=== PATIENT | male | born 1985 | race Caucasian/White ===

== ENCOUNTER 2023-12-26 08:50 | Emergency (ER) | payer OTHER ==
[~2023-12-26] VITALS: Ht 195.6 cm; Wt 111.6 kg
[2023-12-26 11:26] VITALS: BP 131/83; TEMP 97.3; O2SAT 98
== END 2023-12-26 11:30 | disposition home or self-care (01) ==
LOC: M ED 08:50
DX: R31.0 Gross hematuria (principal); N40.0 Benign prostatic hyperplasia without lower urinary tract symptoms; K40.90 Unilateral inguinal hernia, without obstruction or gangrene, not specified as recurrent

== ENCOUNTER → 2024-01-31 | Outpatient (CLI) | payer OTHER ==
[~2024-01-31] MED LIST: ISOVUE-370 76% 100ML VIAL As Ordered ONE
== END ==
LOC: M RAD 15:43
PROVIDERS: ATTEND Urology
DX: N20.0 Calculus of kidney (principal); R31.0 Gross hematuria
CPT/HCPCS: 74178; Q9967

== ENCOUNTER → 2024-09-12 | Outpatient (CLI) | payer OTHER ==
[~2024-09-12] MED LIST changes: -ISOVUE-370 76% 100ML VIAL As Ordered ONE; +PROHANCE 279.3MG/ML 15ML VIAL ONE; +PROHANCE 279.3MG/ML 5ML VIAL ONE
== END ==
LOC: M PLAIMG 14:25
PROVIDERS: ATTEND Orthopaedic Surgery Hand Surgery
DX: M25.832 Other specified joint disorders, left wrist (principal)
CPT/HCPCS: 73223; A9576

== ENCOUNTER 2024-10-22 07:57 | Day surgery (SDC) | payer OTHER ==
[~2024-10-22] VITALS: Ht 195.6 cm; Wt 104.5 kg
[~2024-10-22 07:57] MED LIST changes: +CELE1CAP4 PO; +HYDR-3716 PO; +KETOROLAC 60MG 2ML VIAL As Ordered ONE; +LIDOCAINE 2% 100MG/5ML SDV (FOR ANES.) As Ordered ONE; +METH-1164 PO; +ONDANSETRON 4MG 2ML VIAL As Ordered ONE; -PROHANCE 279.3MG/ML 15ML VIAL ONE; -PROHANCE 279.3MG/ML 5ML VIAL ONE; +propofoL 200 MG/20 ML VIAL As Ordered ONE
[2024-10-22] MEDS ORDERED: MIDAZOLAM INJ 2MG/2ML VIAL As Ordered ONE (08:00)
[2024-10-22] MEDS ORDERED: fentaNYL 100 MCG/2 ML INJECTION As Ordered ONE (08:00)
[2024-10-22] MEDS ORDERED: dexmedeTOMIDine (4MCG/ML)200MCG/50ML BTL (PRECEDEX) As Ordered ONE (08:28)
[2024-10-22] MEDS ORDERED: NS 1,000 ML IV SCH ×2 (08:40→10:35)
[2024-10-22] MEDS: ceFAZolin 2 GM/D5W 50 ML IV BAG As Ordered ONE (09:27)
[2024-10-22] MEDS ORDERED: ceFAZolin SOD 2 GM in IV 1 EA IV ONE (09:27)
[2024-10-22] MEDS ORDERED: ACETAMINOPHEN 1000MG/100ML IV BAG As Ordered ONE (09:31)
[2024-10-22] MEDS ORDERED: GLYCOPYRROLATE INJ 0.2 MG/ML 2 ML VIAL As Ordered ONE (09:51)
[2024-10-22] MEDS: BACITRACIN OINTMENT 30GM TUBE As Ordered ONE (10:09)
[2024-10-22] MEDS ORDERED: ONDANSETRON 4MG 2ML VIAL IV PRN (10:35)
[2024-10-22] MEDS ORDERED: HYDROMORPHONE HCL 0.5 MG/ 0.5 ML SYRINGE IV PRN (10:35)
[2024-10-22] MEDS ORDERED: fentaNYL 100 MCG/2 ML INJECTION IV PRN (10:35)
[2024-10-22] MEDS ORDERED: PERC5TAB12 PO (10:36)
[2024-10-22] MEDS: oxyCODONE 5MG TAB PO PRN (11:08)
[2024-10-22 11:30] VITALS: BP 113/61; TEMP 97.3; O2SAT 98
== END 2024-10-22 12:10 | disposition home or self-care (01) ==
LOC: M SDC 07:57
PROVIDERS: ATTEND Orthopaedic Surgery Hand Surgery
DX: M67.432 Ganglion, left wrist (principal); J30.9 Allergic rhinitis, unspecified; Z91.018 Allergy to other foods; Z79.899 Other long term (current) drug therapy
CPT/HCPCS: 25111; 88305; J0131; J0665; J0690; J1100; J1596; J1885; J2250; J2405; J3010